=== PATIENT | male | born 1990 | race Caucasian/White ===

== ENCOUNTER 2023-02-14 17:51 | Inpatient (IN) ==
[2023-02-14] MEDS ORDERED: Lactated Ringers 1000 ml BAG 1,000 ML IV ONE (18:14)
[2023-02-14 18:48] LABS: ABS Basophils 0.1 10^3/uL (0.0-0.1); ABS Eosinophils 0.1 10^3/uL (0.0-0.5); ABS Lymphocytes 1.2 10^3/uL (1.0-4.8); ABS Monocytes 1.1 10^3/uL (0.0-1.1); ABS Neutrophils 8.4 10^3/uL (1.5-7.6); Eosinophil % 1.1 %; Lymphocyte % 10.6 %; Mean Corpuscular Hemoglobin 26.8 pg (27-33); Mean Corpuscular Hgb Conc 33.3 g/dL (31-36); Mean Corpuscular Volume 80.6 fL (80-97); Mean Platelet Volume 7.4 fL (7.5-11.2); Platelet Count 548 10^3/uL (150-450); Red Cell Distribution Width 15.6 % (12-17); White Blood Count 10.8 10^3/uL (3.6-10.2)
[2023-02-14 19:24] LABS: Albumin/Globulin Ratio 1.1 (1-3); C Reactive Protein 398.44 mg/L (<8.01); Calcium 9.3 mg/dL (8.6-10.3); Creatinine, Serum 0.73 mg/dL (0.67-1.17); Globulin 3.7 g/dL (2-4); Potassium 3.6 mmol/L (3.5-5.0); Total Bilirubin 0.6 mg/dL (0.2-1.0); Total Protein 7.7 g/dL (6.4-8.9); eGFR CKD-EPI 125.5 (>60)
[2023-02-14 20:12] LABS: Urine Appearance Clear; Urine Bilirubin Negative (Negative); Urine Blood Negative (Negative); Urine Color Amber; Urine Glucose Negative (Negative); Urine Ketones Negative (Negative); Urine Nitrite Negative (Negative); Urine Protein 1+(30 mg/dL) (Negative); Urine Specific Gravity 1.026 (1.002-1.030); Urine Urobilinogen Positive (Negative)
[2023-02-14 20:14] LABS: Urine Bacteria Absent (Absent); Urine Red Blood Cell Trace(0-2/hpf) (Absent); Urine Squamous Epithelial Cell Present (Absent); Urine White Blood Cell Absent (Absent)
[2023-02-14 20:25] LABS: High Sensitivity Troponin 1 Hr 3 pg/mL (<20)
[2023-02-14] MEDS ORDERED: Iohexol 350 (CONTRAST) 500 ML MDV IV ONE (20:59)
[2023-02-14] MEDS ORDERED: cefTRIAXone 1 gm/50 mL D5W 1 GM/50 ML BAG IV ONE (23:39)
[2023-02-14] MEDS ORDERED: Vancomycin 1,500 MG in NS 0.9% 250 ml 250 ML IVPB ONE (23:39)
[2023-02-15] MEDS ORDERED: Polyethylene Glycol 3350 17 GM PACKET PO PRN (00:39)
[2023-02-15] MEDS: ceFAZolin 1 GM ADVAN 1 GM in NS 0.9% 50 ML 50 ML IVPB SCH ×3 (05:41→19:55)
[2023-02-15] MEDS: Calcium Polycarbophil 625mg TB PO SCH ×2 (08:33→20:45)
[2023-02-15] MEDS: LUBIPROSTONE 8 MCG PO SCH (08:33)
[2023-02-15 10:00] LABS: ABS Basophils 0.1 10^3/uL (0.0-0.1); ABS Eosinophils 0.1 10^3/uL (0.0-0.5); ABS Lymphocytes 0.9 10^3/uL (1.0-4.8); ABS Monocytes 1.2 10^3/uL (0.0-1.1); ABS Neutrophils 9.3 10^3/uL (1.5-7.6); ABS Nucleated RBC 0.01 10^3/ul; Eosinophil % 0.9 %; Hematocrit 28.2 % (38-53); Hemoglobin 9.6 g/dL (13.2-16.3); Lymphocyte % 7.5 %; Mean Corpuscular Hemoglobin 27.5 pg (27-33); Mean Corpuscular Hgb Conc 34.1 g/dL (31-36); Mean Corpuscular Volume 80.6 fL (80-97); Mean Platelet Volume 7.2 fL (7.5-11.2); Nucleated Red Blood Cells % 0.1 /100 WBC (0.0-0.4); Platelet Count 532 10^3/uL (150-450); White Blood Count 11.5 10^3/uL (3.6-10.2)
[2023-02-15] MEDS ORDERED: Lactated Ringers 1000 ml BAG 1,000 ML IV SCH ×3 (10:00→11:26)
[2023-02-15 10:15] LABS: Calcium 8.7 mg/dL (8.6-10.3); Creatinine, Serum 0.66 mg/dL (0.67-1.17); Potassium 3.9 mmol/L (3.5-5.0); eGFR CKD-EPI 129.4 (>60)
[2023-02-15 11:17] LABS: Urine Appearance Cloudy; Urine Bilirubin Negative (Negative); Urine Blood Negative (Negative); Urine Color Amber; Urine Glucose Negative (Negative); Urine Ketones Negative (Negative); Urine Nitrite Negative (Negative); Urine Protein 1+(30 mg/dL) (Negative); Urine Specific Gravity 1.027 (1.002-1.030); Urine Urobilinogen Negative (Negative)
[2023-02-15 11:22] LABS: Urine Bacteria Absent (Absent); Urine Red Blood Cell 2+(6-10/hpf) (Absent); Urine White Blood Cell 1+(6-10/hpf) (Absent)
[2023-02-15] MEDS: Lactated Ringers 1000 ml BAG 1,000 ML IV SCH ×2 (12:13→19:17)
[2023-02-15] MEDS ORDERED: Gadoteridol (CONTRAST) 279.3 MG/ML 10 ML IV ONE (15:44)
[2023-02-15 17:37] LABS: Calcium 8.6 mg/dL (8.6-10.3); Creatinine, Serum 0.64 mg/dL (0.67-1.17); Potassium 3.8 mmol/L (3.5-5.0); eGFR CKD-EPI 130.6 (>60)
[2023-02-15] MEDS: Senna TAB 8.6 mg TAB PO PRN (20:45)
[2023-02-16] MEDS: ceFAZolin 1 GM ADVAN 1 GM in NS 0.9% 50 ML 50 ML IVPB SCH ×3 (03:12→18:33)
[2023-02-16] MEDS ORDERED: Acetaminophen IV 1 GM/100ML 1,000 MG/100 ML BAG IV ONE (04:32)
[2023-02-16 06:53] LABS: ABS Monocytes 0.8 10^3/uL (0.0-1.1); ABS Neutrophils 6.8 10^3/uL (1.5-7.6); ABS Nucleated RBC 0.01 10^3/ul; Eosinophil % 0.5 %; Hematocrit 25.9 % (38-53); Hemoglobin 8.9 g/dL (13.2-16.3); Lymphocyte % 11.1 %; Mean Corpuscular Hemoglobin 28.2 pg (27-33); Mean Corpuscular Hgb Conc 34.3 g/dL (31-36); Mean Corpuscular Volume 82.3 fL (80-97); Mean Platelet Volume 7.2 fL (7.5-11.2); Nucleated Red Blood Cells % 0.1 /100 WBC (0.0-0.4); Platelet Count 480 10^3/uL (150-450); Red Blood Count 3.15 10^6/uL (4.06-5.63); Red Cell Distribution Width 15.5 % (12-17); White Blood Count 8.7 10^3/uL (3.6-10.2)
[2023-02-16 07:18] LABS: Calcium 8.6 mg/dL (8.6-10.3); Creatinine, Serum 0.66 mg/dL (0.67-1.17); Potassium 3.7 mmol/L (3.5-5.0); eGFR CKD-EPI 129.4 (>60)
[2023-02-16] MEDS: Calcium Polycarbophil 625mg TB PO SCH ×2 (09:15→21:01)
[2023-02-16] MEDS ORDERED: Sodium Phosphate ADULT ENEMA 133 ML BTL PR PRN (10:58)
[2023-02-16] MEDS: LUBIPROSTONE 8 MCG PO SCH (11:03)
[2023-02-16 13:10] LABS: Activated Partial Thrombo Time 36.6 seconds (26.0-38.0); INR 1.81 (0.88-1.18)
[2023-02-16] MEDS ORDERED: LUBIPROSTONE 8 MCG PO SCH (16:00)
[2023-02-16] MEDS ORDERED: fentaNYL 100 mcg/2 ml 50 MCG/ML VIAL ONE (16:15)
[2023-02-16 18:02] LABS: Body Fluid Appearance Cloudy; Body Fluid Color Pink
[2023-02-16 18:41] LABS: Body Fluid WBC 20 /mcL
[2023-02-16 19:50] LABS: Body Fluid Mono 10 %; Body Fluid Total Cells Counted 100
[2023-02-16] MEDS: Senna TAB 8.6 mg TAB PO PRN (21:01)
[2023-02-17] MEDS: ceFAZolin 1 GM ADVAN 1 GM in NS 0.9% 50 ML 50 ML IVPB SCH ×2 (03:09→11:37)
[2023-02-17] MEDS: Calcium Polycarbophil 625mg TB PO SCH (08:41)
[2023-02-17 10:36] VITALS: BP 118/70
[2023-02-17 14:04] LABS: C Reactive Protein 260.18 mg/L (<8.01)
[2023-02-18 16:49] LABS: Anaplasma phagocytophilum Negative (Negative); B. miyamotoi PCR, B Negative (Negative); Babesia divergens/MO-1 Negative (Negative); Babesia ducani Negative (Negative); Ehrlichia chaffeensis Negative (Negative); Ehrlichia ewingii/canis Negative (Negative); Ehrlichia muris eauclairensis Negative (Negative)
== END 2023-02-17 13:30 | disposition home or self-care (01) | DRG 351 ==
LOC: ED 17:51 → EDHOLD 17:51 → SUATTDRO 23:39 → MED 02-15 01:20
PROVIDERS: ADMIT Student in an Organized Health Care Education/Training Program; ATTEND Internal Medicine